=== PATIENT | female | born 1950 | race Caucasian/White ===

== ENCOUNTER 2017-07-28 08:49 | Outpatient (CLI) | payer OTHER ==
--- NOTE | 2017-07-29 15:44 | Magnetic Resonance Report ---
MRI LEFT SHOULDER WITHOUT CONTRAST: 07/28/17 CLINICAL: Healing fracture of the left humerus and left shoulder pain. No comparison images. TECHNIQUE: Coronal T1, coronal T2, coronal proton density fat saturation, sagittal proton density fat saturation and axial gradient echo T* sequences on a 1.5 Leti magnet. Initial proton density fat-sat sequences were inadequate and the patient returned for repeat proton density fat-sat sequences 07/29/17. FINDINGS: A comminuted minimally displaced fracture of the anatomic neck of the humerus. Fracture lines are hyperintense on T2 and proton density fat sat sequences. It is hypointense on T1. The major fracture line is oblique and extends to the medial humeral cortex. Normal glenohumeral alignment. Abnormal hyperintense signal in the distal supraspinatus tendon consistent with intrasubstance partial-thickness tear. A rim rent tear of the anterior portion of the infraspinatus tendon at its insertion. The rest of the rotator cuff is intact. Intact glenoid labrum and long head of the biceps tendon. There is a small joint effusion. Type I acromion and moderate acromioclavicular joint arthritis with mild impingement of the supraspinatus tendon. The muscles have normal signal. IMPRESSION: 1. Healing subacute minimally displaced comminuted fracture of the anatomic neck of the humerus. 2. Partial-thickness tears of the rotator cuff involving the supraspinatus and infraspinatus tendons. 3. Moderate acromioclavicular joint arthritis with mild impingement of the supraspinatus tendon.
== END 2017-07-28 08:50 | disposition home or self-care (01) ==
LOC: SPVIMAG 08:49
PROVIDERS: ATTEND Orthopaedic Surgery
DX: S42.92XD Fracture of left shoulder girdle, part unspecified, subsequent encounter for fracture with routine healing (principal); M75.102 Unspecified rotator cuff tear or rupture of left shoulder, not specified as traumatic; M19.012 Primary osteoarthritis, left shoulder; X58.XXXD Exposure to other specified factors, subsequent encounter